=== PATIENT | female | born 1945 | race Caucasian/White ===

== ENCOUNTER 2020-10-28 17:15 | Inpatient (IN) | payer MEDICARE, OTHER ==
[~2020-10-28 17:15] MED LIST: Iopamidol-370 76% 500 ML 1 ML ONE
--- NOTE | 2020-10-28 18:44 | RAD ---
Exam: Chest one view HISTORY:COVID exposure Comparison: None FINDINGS: Cardiac silhouette: Normal Aorta: Unremarkable Pulmonary vessels: Normal Costophrenic angles: Clear LUNGS: No masses or consolidation. Chronic lung parenchymal changes. Pneumothorax: None Osseous abnormalities: None IMPRESSION: No acute cardiopulmonary process.
[2020-10-28] MEDS ORDERED: Albuterol 200 PUFF (6.7GM INHALER) ONE (18:45)
[2020-10-28] MEDS ORDERED: Dexamethasone 10 MG/ML VIAL ONE (18:45)
[2020-10-28] MEDS ORDERED: Aspirin Chewable 81 MG TAB ONE (18:45)
[2020-10-28 18:49] LABS: #Basophils 0.1 thou/uL (0.0-0.2); #Eosinphils 0.2 thou/uL (0.0-0.7); #Lymphocytes 1.5 thou/uL (1.20-3.40); #Monocytes 0.8 thou/uL (0.11-0.59); #Neutrophils 5.3 thou/uL (1.40-6.50); %Basophils 0.8 % (0.0-1.0); %Eosinophils 2.4 % (0.0-10.0); %Lymphocytes 19.6 % (21.0-51.0); %Neutrophils 67.1 % (42.0-75.0); Hemoglobin 14.5 g/dL (12.0-16.0); Mean Corpuscular HGB CONC 33.8 g/dL (32.0-36.0); Mean Corpuscular Hemoglobin 29.2 pg (27.0-31.0); Mean Corpuscular Volume 86.4 fL (78.0-98.0); RBC Distribution Width 11.6 % (11.5-14.5); Red Blood Cell (RBC) Count 4.96 mill/uL (4.20-5.40); White Blood Cell (WBC) Count 7.8 thou/uL (4.8-10.8)
[2020-10-28 18:58] LABS: MDiff Complete? YES; Mean Platelet Volume 9.6 fL (7.4-10.4); Platelet Count 44 thou/uL (130-400); Platelet Morphology Comment Appears Decreased; Polychromasia SLIGHT = 2-3 cells (100X) (0-2/hpf)
[2020-10-28 18:59] LABS: ALT (SGPT) 30 U/L (8-55); AST (SGOT) 29 U/L (5-34); Albumin 3.9 g/dL (3.4-4.8); Alkaline Phosphatase 104 U/L (40-110); Anion Gap 14 mmol/L (10-20); BUN (Urea Nitrogen) 20 mg/dL (9.8-20.1); Bilirubin, Total 0.9 mg/dL (0.2-1.2); Calc. Creatinine Clearance 0 mL/min (70-130); Calcium 9.3 mg/dL (7.8-10.44); Carbon Dioxide 28 mmol/L (23-31); Chloride 106 mmol/L (98-107); Globulin 3.1 g/dL (2.4-3.5); Glucose 100 mg/dL (83-110); Potassium 4.3 mmol/L (3.5-5.1); Sodium 144 mmol/L (136-145)
[2020-10-28 19:52] LABS: SARS-CoV-2 NAA Rapid Test DETECTED (NotDetected)
[2020-10-28] MEDS ORDERED: diphenhydrAMINE 50 MG/ML VIAL ONE (19:59)
[2020-10-28] MEDS ORDERED: Famotidine/PF 20 mg/2ml Vial ONE (20:00)
[2020-10-28] MEDS ORDERED: methylPREDNISolone Sod Succ/PF 125 MG/2 ML VIAL ONE (20:01)
--- NOTE | 2020-10-28 21:48 | CT ---
Exam: CT angiogram of the chest HISTORY: Dyspnea, x3 weeks. Shortness of breath. Chest tightness. History of previous DVT. COMPARISON: None TECHNIQUE: CT angiogram of the chest is performed in the axial plane. Three-dimensional reformatted i mages are submitted for interpretation FINDINGS: Mediastinum: No mass, lymphadenopathy or hematoma. HEART: Normal size. No significant pericardial fluid. Aorta: No aneurysm or dissection Upper solid abdominal viscera: Hypoattenuation liver due to hepatic steatosis Trachea and central bronchi: Patent Pleural spaces: No effusion Lung parenchyma: Minimal parenchymal groundglass opacities in the middle lobe and right upper lobe. I ll-defined opacities in the middle lobe measures 0.4 cm. Granuloma in the lingula. 0.3 cm ill-defined opacity in the left lower lobe. Pneumothorax: None Osseous structures: No lytic or blastic lesions Pulmonary arteries:There are intraluminal filling defects involving the distal right pulmonary artery , lobar and segmental branches of the right upper lobe and segmental branch right lower lobe. There are also filling defects in the distal left main pulmonary artery extending into the proximal lobar l eft lower lobe artery and segmental branches of the left lower lobe pulmonary artery. These filling defects are incomplete and have a somewhat linear appearance. Findings may represent previous pulmona ry artery emboli which did not completely resolve. However, an acute component cannot be excluded. There does not appear to be right heart strain. IMPRESSION: 1. Linear filling defects which are intraluminal involving the right and left pulmonary arterial syst em as described above. Imaging appearance favors a previous incompletely resolved pulmonary artery emboli with residual partial thrombosis. A component of an acute process is less favored but cannot b e entirely excluded. 2. No evidence of right heart failure.
[2020-10-28] MEDS ORDERED: Enoxaparin Sodium 100 MG/ML SYRINGE ONE (23:43)
[2020-10-28 23:44] LABS: Troponin I 0.014 ng/mL (< 0.028)
[2020-10-29 00:33] LABS: Mean Corpuscular HGB CONC 34.6 g/dL (32.0-36.0); Mean Corpuscular Hemoglobin 29.8 pg (27.0-31.0); Mean Corpuscular Volume 86.1 fL (78.0-98.0); Mean Platelet Volume 10.3 fL (7.4-10.4); Platelet Count 48 thou/uL (130-400); RBC Distribution Width 11.8 % (11.5-14.5); Red Blood Cell (RBC) Count 5.04 mill/uL (4.20-5.40); White Blood Cell (WBC) Count 8.6 thou/uL (4.8-10.8)
[2020-10-29] MEDS ORDERED: Ondansetron ODT 4 MG TAB SL PRN (01:15)
[2020-10-29] MEDS ORDERED: Ondansetron PF 4 MG/2 ML Vial IVP PRN ×2 (01:15→06:19)
[2020-10-29 02:03] VITALS: BMI 36.6
[2020-10-29 02:47] LABS: Troponin I 0.012 ng/mL (< 0.028)
[2020-10-29] MEDS ORDERED: Promethazine HCl 12.5 MG in Sodium Chloride 0.9% 50 ML IVPB PRN (06:19)
[2020-10-29] MEDS ORDERED: cloNIDine 0.1 MG TAB PO PRN (06:19)
[2020-10-29] MEDS ORDERED: Acetaminophen 325 MG TAB PO PRN (06:19)
[2020-10-29] MEDS ORDERED: Guaifenesin DM 100-10/5 ML UDCUP PO PRN (06:19)
[2020-10-29] MEDS ORDERED: HYDROcodone/Acetaminophen 5/325 mg Tablet PO PRN (06:19)
[2020-10-29] MEDS ORDERED: Labetalol HCl 100 MG/20 ML VIAL SLOW IVP PRN (06:19)
[2020-10-29] MEDS ORDERED: hydrALAZINE 20 MG/ML VIAL SLOW IVP PRN (06:19)
--- NOTE | 2020-10-29 06:24 | PDOC.HHP ---
Hospitalist HPI Shortness of breath History of Present Illness: Patient is a 74 year old male with PMH colon cancer, DVT (remote), HTN, HLD who presents to ED for shortness of breath. She reports symptoms started 3 weeks ago and have become worse in last week. Had a fever initially but this has resolved. She reports body aches and chest pain. Spouse was admitted here for COVID this month as well. She has history of colon cancer in remission, saw doctor in [facility] some time ago and had a DVT while cancer was active, treated with 6 months lovenox. In ED, not on O2, however CTA performed of chest due to history revealing multiple diffuse small PEs and scattered ground glass opacities consistent with COVID. COVID test positive. Patient admitted for covid, PE. she prefers not be on lovenox and wants to try eliquis or xarelto fpc. Allergies/Adverse Reactions: Allergy/AdvReac Type Severity Reaction Status Date / Time Iodinated Contrast Media Allergy Unknown Rash Verified 10/29/20 02:10 Penicillins Allergy Verified 10/29/20 02:10 tramadol Allergy Verified 10/29/20 02:10 Home Medications: Medication Instructions Recorded Confirmed Type Valsartan/Hydrochlorothiazide 1 each PO DAILY 10/29/20 10/29/20 History [Valsartan-Hctz 80-12.5 mg Tab] Past History: PMHx: PNA as a kid "spots on my lungs from that", colon CA 2011, DVT right leg, HTN, HDL, hypothyroidism. PSHx: left rotator cuff sx, bilat knee replacement, Surgical history of appendectomy, Surgical history of section, Surgical history of hy sterectomy. FHx: reviewed, no relevant family history. Social: Patient denies alcohol use, Patient denies drug use, Patient has no smoking history. Hospitalist HPI HILDA Constitutional: reports: fever, chills, sweats, weakness Eyes: denies: pain, vision change, conjunctivae inflammation, eyelid inflammation, redness, other ENT: denies: ear pain, ear discharge, nose pain, nose discharge, nose congestion, mouth pain, mouth swelling, throat pain, throat swelling, other Respiratory: reports: shortness of breath, pleuritic pain. denies: cough, dry, hemoptysis, SOB with excertion, sputum, wheezing, other Cardiovascular: denies: chest pain, palpitations, orthopnea, paroxysmal noc. dyspnea, edema, light headedness, other Gastrointestinal: denies: nausea, vomiting, abdominal pain, diarrhea, constipation, melena, hematochezia, other Genitourinary: denies: dysuria, frequency, incontinence, hematuria, retention, other Musculoskeletal: denies: neck pain, shoulder pain, arm pain, back pain, hand pain, leg pain, foot pain, other Skin: denies: rash, lesions, conrad, bruising, other Neurological: denies: weakness, numbness, incoordination, change in speech, confusion, seizures, other All other systems reviewed; all pertinent +/- noted in HPI/Subj Hospitalist Exam Vitals: Vital Signs (12 hours) Temp Pulse Resp BP BP Pulse Ox 10/29/20 06:07 76 10/29/20 06:00 20 10/29/20 05:00 18 98 10/29/20 04:00 20 97 10/29/20 03:30 98 F 97 17 122/64 93 L 10/29/20 03:00 20 10/29/20 01:00 97.9 F 104 H 22 H 141/65 H 141/65 H 95 Weight Admit Weight 207 lb Weight 207 lb General Appearance: NAD, awake alert Eye: PERRL, anicteric sclera ENT: normocephalic atraumatic, no oropharyngeal lesions, moist mucosa Neck: supple, symmetric, no JVD, no thyromegaly, no lymphadenopathy, no carotid bruit Heart: RRR, no murmur, no gallops, no rubs, normal peripheral pulses Respiratory: CTAB, no wheezes, no rales, no ronchi, normal chest expansion, no tachypnea, normal percussion Gastrointestinal: soft, non-tender, non-distended, normal bowel sounds, no palpable masses, no hepatomegaly, no splenomegaly, no bruit Extremities: no cyanosis, no clubbing, no edema Skin: normal turgor, no lesions, no rashes Neurological: cranial nerve grossly intact, normal sensation to touch, no weakness, no focal deficits, no new deficit Musculoskeletal: normal tone, normal strength, no muscle wasting Psychiatric: normal affect, normal behavior, A&O x 3 Hospitalist Results Result Diagrams: 10/29/20 00:16 10/28/20 18:26 Lab results: Laboratory Last Values WBC 8.6 thou/uL (4.8-10.8) 10/29/20 00:16 RBC 5.04 mill/uL (4.20-5.40) 10/29/20 00:16 Hgb 15.0 g/dL (12.0-16.0) 10/29/20 00:16 Hct 43.4 % (36.0-47.0) 10/29/20 00:16 MCV 86.1 fL (78.0-98.0) 10/29/20 00:16 MCH 29.8 pg (27.0-31.0) 10/29/20 00:16 MCHC 34.6 g/dL (32.0-36.0) 10/29/20 00:16 RDW 11.8 % (11.5-14.5) 10/29/20 00:16 Plt Count 48 thou/uL (130-400) L 10/29/20 00:16 MPV 10.3 fL (7.4-10.4) 10/29/20 00:16 Neutrophils % 67.1 % (42.0-75.0) 10/28/20 18:26 Neutrophils % (Manual) Not Reportable 10/28/20 18:26 Lymphocytes % 19.6 % (21.0-51.0) L 10/28/20 18:26 Monocytes % 10.0 % (0.0-10.0) 10/28/20 18:26 Eosinophils % 2.4 % (0.0-10.0) 10/28/20 18:26 Basophils % 0.8 % (0.0-1.0) 10/28/20 18:26 Neutrophils # 5.3 thou/uL (1.40-6.50) 10/28/20 18:26 Lymphocytes # 1.5 thou/uL (1.20-3.40) 10/28/20 18:26 Monocytes # 0.8 thou/uL (0.11-0.59) H 10/28/20 18:26 Eosinophils # 0.2 thou/uL (0.0-0.7) 10/28/20 18: Basophils # 0.1 thou/uL (0.0-0.2) 10/28/20 18:26 Plt Morphology Comment Appears Decreased L 10/28/20 18: Polychromasia SLIGHT = 2-3 cells (100X) (0-2/hpf) 10/28/20 18:26 Sodium 144 mmol/L (136-145) 10/28/20 18: Potassium 4.3 mmol/L (3.5-5.1) 10/28/20 18: Chloride 106 mmol/L (98-107) 10/28/20 18: Carbon Dioxide 28 mmol/L (23-31) 10/28/20 18: Anion Gap 14 mmol/L (10-20) 10/28/20 18: BUN 20 mg/dL (9.8-20.1) 10/28/20 18: Creatinine 1.03 mg/dL (0.6-1.1) 10/28/20 18: Estimated GFR (MDRD) 52 10/28/20 18: Glucose 100 mg/dL (83-110) 10/28/20 18: Lactic Acid 1.2 mmol/L (0.5-2.2) 10/28/20 18:33 Calcium 9.3 mg/dL (7.8-10.44) 10/28/20 18: Total Bilirubin 0.9 mg/dL (0.2-1.2) 10/28/20 18: AST 29 U/L (5-34) 10/28/20 18: ALT 30 U/L (8-55) 10/28/20 18: Alkaline Phosphatase 104 U/L (40-110) 10/28/20 18: Troponin I 0.012 ng/mL (< 0.028) 10/29/20 02:14 B-Natriuretic Peptide 10.5 pg/mL (0-100) 10/28/20 18: Serum Total Protein 7.0 g/dL (5.8-8.1) 10/28/20 18: Albumin 3.9 g/dL (3.4-4.8) 10/28/20 18: Globulin 3.1 g/dL (2.4-3.5) 10/28/20 18: Albumin/Globulin Ratio 1.3 g/dL (1.2-2.2) 10/28/20 18:26 Influenza A RNA INAAT Not Detected (NotDetected) 10/28/20 18:57 Influenza B RNA INAAT Not Detected (NotDetected) 10/28/20 18:57 SARS-CoV-2 Rap RNA(RT-PCR) DETECTED (NotDetected) A* 10/28/20 18:57 XR Chest 1 View Portable Observe DT: SatOct 28, 2020 18:12, CXRP Exam: Chest one view IMPRESSION: No acute cardiopulmonary process. CTA Angio Chest W WO Con Observe DT: SatOct 28, 2020 18:19, CTATHX Exam: CT angiogram of the chest IMPRESSION: 1. Linear filling defects which are intraluminal involving the right and left pulmonary arterial syst em as described above. Imaging appearance favors a previous incompletely resolved pulmonary artery emboli with residual partial thrombosis. A component of an acute process is less favored but cannot b e entirely excluded. 2. No evidence of right heart failure. Additional comment: EKG 86 bpm sinus, no acute ST elevations Hospitalist H&P A/P Plan: Patient is a 74 year old male with PMH colon cancer, DVT (remote), HTN, HLD who presents to ED for shortness of breath. # COVID pneumonia # pulmonary embolism - with history of colon cancer in remission dyspnea x 3 weeks, fever, body aches and chest pain, history of colon cancer in remission, saw doctor in [facility] some time ago and had a DVT while cancer was active, treated with 6 months lovenox. In ED, not on O2, however CTA performed of chest due to history revealing multiple diffuse small PEs and scattered ground glass opacities consistent with COVID. COVID test positive. Patient admitted for covid, PE - admit to telemetry - she prefers not be on lovenox and wants to try eliquis or xarelto fpc - start lovenox for now - decadron - covid precautions - monitor off abx for now DVT/GI ppx
[2020-10-29] MEDS ORDERED: Electrolyte Replacement Protocol 1 EACH FS SCH (06:30)
[2020-10-29] MEDS: Dexamethasone 4 mg/ml Vial SLOW IVP SCH (06:42)
[2020-10-29] MEDS: Hydrochlorothiazide 25 MG TAB PO SCH (07:49)
[2020-10-29] MEDS: Valsartan 80 MG TAB PO SCH (07:50)
[2020-10-29] MEDS ORDERED: Cepastat Lozenges 1 LOZ PO PRN (08:20)
[2020-10-29] MEDS ORDERED: Calcium Carbonate 500 MG ChewTAB PO PRN (08:20)
[2020-10-29] MEDS ORDERED: Bisacodyl 5 MG TAB PO PRN (08:20)
[2020-10-29] MEDS ORDERED: Loratadine 10 MG TAB PO PRN (08:20)
[2020-10-29] MEDS ORDERED: Senokot S 8.6-50 MG TAB PO PRN (08:20)
[2020-10-29] MEDS ORDERED: Benzonatate 100 MG CAP PO PRN (08:20)
[2020-10-29] MEDS ORDERED: GUAIFENESIN SF SOLN 200 MG/10 ML UDCUP PO PRN (08:20)
[2020-10-29] MEDS ORDERED: Loperamide HCl 2 MG CAP PO PRN (08:20)
[2020-10-29] MEDS ORDERED: Sodium Chloride 0.65% Nasal 44 ML BOT EA NARE PRN (08:20)
[2020-10-29] MEDS ORDERED: Famotidine 20 MG TAB PO SCH (09:00)
[2020-10-29] MEDS: Enoxaparin Sodium 100 MG/ML SYRINGE SC SCH ×2 (10:11→21:37)
[2020-10-29] MEDS: Ascorbic Acid 500 mg Chewable Tablet PO SCH (10:14)
[2020-10-29] MEDS: Cholecalciferol 1,000 UNITS (25 MCG) TAB PO SCH (10:15)
[2020-10-29] MEDS: Zinc Sulfate 220 MG CAP PO SCH (10:15)
[2020-10-29] MEDS: Vitamin E 400 UNITS CAP PO SCH (10:15)
--- NOTE | 2020-10-29 11:01 | PDOC.HOSPP ---
- Subjective Encounter Date: 10/29/20 Encounter Time: 07:50 Subjective: Patient seen and examined bedside today, no overnight event, patient feels subjective chest tightness when she takes deep breath, she denies any cough or shortness of breath, she denies any fever or chills, she is on room air this morning, she denies any lower extremity pain or swelling, patient reports that she was developed bruise when she was getting Lovenox injection with her previous DVT episode. - Objective Vital Signs & Weight: Vital Signs (12 hours) Temp Pulse Resp BP BP Pulse Ox 10/29/20 07:30 98.2 F 91 20 116/65 95 10/29/20 06:07 76 10/29/20 06:00 20 10/29/20 05:00 18 98 10/29/20 04:00 20 97 10/29/20 03:30 98 F 97 17 122/64 93 L 10/29/20 03:00 20 10/29/20 01:00 97.9 F 104 H 22 H 141/65 H 141/65 H 95 Weight Admit Weight 207 lb Weight 207 lb Result Diagrams: 10/29/20 00:16 10/28/20 18:26 Radiology Reviewed by me: Yes (CT angiography noted) EKG Reviewed by me: Yes Hospitalist ROS - Review of Systems Constitutional: denies: fever, chills, sweats, weakness, malaise, other Respiratory: denies: cough, dry, shortness of breath, hemoptysis, SOB with excertion, pleuritic pain, sputum, wheezing, other Cardiovascular: reports: chest pain. denies: palpitations, orthopnea, par oxysmal noc. dyspnea, edema, light headedness, other Gastrointestinal: denies: nausea, vomiting, abdominal pain, diarrhea, constipation, melena, hematochezia, other Genitourinary: denies: dysuria, frequency, incontinence, hematuria, retention, other Musculoskeletal: denies: neck pain, shoulder pain, arm pain, back pain, hand pain, leg pain, foot pain, other - Medication Medications: Active Medications Generic Name Dose Route Start Last Admin Trade Name Freq PRN Reason Stop Dose Admin Ascorbic Acid 1,000 mg 10/29/20 09:00 10/29/20 10:14 Ascorbic Acid 500 Mg Chewable Tablet PO 1,000 mg DAILY JERRY Administration Cholecalciferol 1,000 units 10/29/20 09:00 10/29/20 10:15 Cholecalciferol 1,000 Units (25 Mcg) Tab PO 1,000 units DAILY JERRY Administration Dexamethasone 6 mg 10/29/20 06:30 10/29/20 06:42 Dexamethasone 4 Mg/Ml Vial SLOW IVP 6 mg Q24H JERRY Administration Enoxaparin Sodium 90 mg 10/29/20 09:00 10/29/20 10:11 Enoxaparin Sodium 100 Mg/Ml Syringe SC 90 mg 0900,2100 JERRY Administration Hydrochlorothiazide 12.5 mg 10/29/20 09:00 10/29/20 07:49 Hydrochlorothiazide 25 Mg Tab PO 12.5 mg DAILY JERRY Administration Pantoprazole Sodium 40 mg 10/29/20 09:00 10/29/20 10:15 Pantoprazole 40 Mg Tab PO 40 mg DAILY JERRY Administration Sodium Chloride 10 ml 10/29/20 09:00 10/29/20 10:16 Flush - Normal Saline 10 Ml Syringe IVF 10 ml Q12HR JERRY Administration Valsartan 80 mg 10/29/20 09:00 10/29/20 07:50 Valsartan 80 Mg Tab PO 80 mg DAILY JERRY Administration Vitamin E 400 units 10/29/20 09:00 10/29/20 10:15 Vitamin E 400 Units Cap PO 400 units DAILY JERRY Administration Zinc Sulfate 220 mg 10/29/20 09:00 10/29/20 10:15 Zinc Sulfate 220 Mg Cap PO 220 mg DAILY JERRY Administration Hospitalist Exam Vitals: Vital Signs (12 hours) Temp Pulse Resp BP BP Pulse Ox 10/29/20 07:30 98.2 F 91 20 116/65 95 10/29/20 06:07 76 10/29/20 06:00 20 10/29/20 05:00 18 98 10/29/20 04:00 20 97 10/29/20 03:30 98 F 97 17 122/64 93 L 10/29/20 03:00 20 10/29/20 01:00 97.9 F 104 H 22 H 141/65 H 141/65 H 95 Weight Admit Weight 207 lb Weight 207 lb General Appearance: NAD, awake alert Eye: PERRL, anicteric sclera ENT: normocephalic atraumatic, no oropharyngeal lesions Neck: supple, symmetric, no JVD, no thyromegaly Heart: RRR, no murmur, no gallops, no rubs Respiratory: no wheezes, no rales, no ronchi Gastrointestinal: soft, non-tender, non-distended, normal bowel sounds Extremities: no clubbing, no edema Skin: normal turgor, no lesions Neurological: no focal deficits Musculoskeletal: normal tone, normal strength Psychiatric: normal affect, normal behavior Hosp A/P (1) COVID-19 Code(s): U07.1 - COVID-19 Status: Acute Plan: Patient is on room air, will start vitamin supplementation, patient is on dexamethasone (2) Pulmonary embolism Code(s): I26.99 - OTHER PULMONARY EMBOLISM WITHOUT ACUTE COR PULMONALE Status: Acute Qualifiers: Pulmonary embolism type: multiple subsegmental (without acute cor pulmonale) Qualified Code(s): I26.94 - Multiple subsegmental pulmonary emboli without acute cor pulmonale (3) Thrombocytopenia Code(s): D69.6 - THROMBOCYTOPENIA, UNSPECIFIED Status: Acute (4) Obesity (BMI 30-39.9) Code(s): E66.9 - OBESITY, UNSPECIFIED Status: Chronic (5) History of colon cancer Code(s): Z85.038 - PERSONAL HISTORY OF MALIGNANT NEOPLASM OF LARGE INTESTINE Status: Chronic (6) History of DVT (deep vein thrombosis) Code(s): Z86.718 - PERSONAL HISTORY OF OTHER VENOUS THROMBOSIS AND EMBOLISM Status: Chronic (7) Hypertension Code(s): I10 - ESSENTIAL (PRIMARY) HYPERTENSION Status: Chronic Qualifiers: Hypertension type: essential hypertension Qualified Code(s): I10 - Essential (primary) hypertension - Plan old records reviewed/req, DVT proph w/lovenox Patient has thrombocytopenia, platelet count is slightly better than yesterday, probably related with COVID-19 but underlying other etiology cannot be entirely excluded, will consult hematology especially patient will need anticoagulation for her acute/lab acute to pulmonary embolism based on CT angiography finding, patient prefers Eliquis or Xarelto upon discharge but before we put on oral anticoagulant therapy we will get opinion from hematology regarding safety of the medication, and the patient is also given education about risk and benefit of all anticoagulant therapy and outpatient monitoring and follow-up emphasized, tomorrow we will repeat labs and inflammatory markers. We have added vitamin supplementation for her COVID-19, she is also on dexamethasone.
--- NOTE | 2020-10-29 18:00 | PDOC.BPN ---
- Brief Progress Note Encounter Date: 10/29/20 Encounter Time: 17:59 based on [facility] medical direction, Sobeida Guardado, patient meets inpatient criteria, based on that recommendation changed to inpt status
--- NOTE | 2020-10-29 18:29 | CON ---
DATE OF CONSULTATION: REASON FOR CONSULTATION: PE and thrombocytopenia. HISTORY OF PRESENT ILLNESS: A 74-year-old female with past medical history of colon cancer, DVT, hypertension, hyperlipidemia, and obesity, presenting to the ER with shortness of breath. She states these started within the last three weeks, and over the last few days, began worsening. She had a fever, but this had resolved, also reporting body aches, chest pain, and chest tightness. She was admitted with COVID, and her spouse was admitted for COVID this month as well and is currently in rehab. She was found to have a subacute or chronic pulmonary embolism, though scan could not rule out an acute PE. She had a DVT in 2011 while she was being treated for stage IIIB colon cancer and took Lovenox for six months at that time. She received six months of chemotherapy and has been in remission ever since. She has no history of PE that she is aware of. Her platelets on admission were 44 yesterday and 48 early this morning at midnight. She did not report any abnormal blood counts in the past. She does know she was told she had fatty liver five years ago, but was never told why or anything to do about it. Since admission, she has been started on Lovenox and is complaining of pain from the injections and does not want to take it anymore. She states her shortness of breath and chest tightness have improved since admission. She has no new medications and does not drink alcohol. Her PCP is Dr. Everton Butler in [place], [place]. REVIEW OF SYSTEMS: Ten-point review of systems negative except as per HPI. PAST MEDICAL HISTORY: Colon cancer, DVT, hypertension, high cholesterol, and hypothyroidism. PAST SURGICAL HISTORY: Colon resection, rotator cuff surgery, bilateral knee replacements, appendectomy, , and hysterectomy. FAMILY HISTORY: Not relevant. SOCIAL HISTORY: No alcohol or smoking. CURRENT MEDICATIONS: Reviewed. HOME MEDICATIONS: Valsartan and hydrochlorothiazide. ALLERGIES: 1. IODINATED CONTRAST. 2. PENICILLINS. 3. TRAMADOL. PHYSICAL EXAMINATION: VITAL SIGNS: Temperature 98.3, pulse 100, respirations 21, saturating 93% to 95% on room air, and blood pressure 121/62. Physical examination not done as the patient is COVID positive, and interview was done over the phone to limit exposure. LABORATORY DATA: White blood cells 8.6, hemoglobin 15.0, and platelets 44 on admission, up to 48 six hours later. Sodium 144, potassium 4.3, BUN 20, creatinine 1.03, glucose 100, lactic acid 1.2, bilirubin 0.9, AST 29, ALT 30, alkaline phosphatase 104. BNP 10.5. Troponin peaked at 0.014. COVID PCR was positive, and influenza was negative. IMAGING DATA: CT angio of the chest showed right and left pulmonary arterial embolism favoring a previous incompletely resolved pulmonary embolism with residual partial thrombosis, though component of acute process cannot be entirely excluded and no right heart failure. ASSESSMENT AND PLAN: A 74-year-old female with COVID and thrombocytopenia and pulmonary embolism. She had a deep venous thrombosis during colon cancer and has subacute or acute pulmonary embolism or both and has been started on Lovenox. Her platelets are 48 with no prior history as per the patient of low platelet counts. I expect her low platelets are secondary to COVID, which could also explain her pulmonary embolism. Although this is her 2nd blood clot, the 1st one was provoked by active cancer and this one likely due to COVID, so she likely does not require lifelong anticoagulation. As long as her platelets remain above 40, she is safe for anticoagulation, and as long as no procedures are planned, can safely be switched to either Xarelto or Eliquis at this time and Lovenox can be stopped. Given her history of fatty liver and fatty liver seen on CT, I do recommend abdominal ultrasound to evaluate the liver and the spleen for organomegaly and check viral hepatitis panel as she has never been screened for hepatitis C. She should follow up with her PCP in [place] after discharged to complete 3 to 6 months of anticoagulation and trend platelet count level if it has not returned to normal prior to discharge. Job ID: [id number] [facility]
--- NOTE | 2020-10-29 21:36 | ULT ---
EXAM: US Abdominal CLINICAL HISTORY: Evaluate spleen and liver. COMPARISON: None. FINDINGS: Pancreas: The head and proximal pancreas have a normal echotexture IVC: Obscured by bowel gas Aorta: Visualized aorta has a normal caliber. Liver:Heterogeneous hepatic parenchymal texture likely due to hepatic steatosis or hepatocellular dis ease. Limited evaluation for hepatic masses and intrahepatic biliary dilatation. Right hepatic lobe measures 19.2 cm Gallbladder: Limited evaluation. No sonographic evidence of cholelithiasis, gallbladder wall thickeni ng or pericholecystic fluid. Mayorga's sign:Not commented upon CBD: 0.45 cm common bile duct diameter Portal vein: Not assessed Right kidney: Normal cortical echotexture. No hydronephrosis Right kidney measuring 10.8 x 3.7 x 4. 6 cm in length. Left kidney: Normal cortical echotexture. No hydronephrosis. Left kidney measuring 11.1 x 4.7 x 4.5 cm in length Spleen: Mildly enlarged measuring 14 cm in maximum dimension IMPRESSION: Hepatosplenomegaly. Heterogeneous echotexture of the liver presumed to be due to hepatic steatosis. C T angiogram from 10/28/2020 does demonstrate hepatic steatosis
[2020-10-30 05:11] LABS: #Monocytes 1.2 thou/uL (0.11-0.59); #Neutrophils 17.1 thou/uL (1.40-6.50); %Eosinophils 0.1 % (0.0-10.0); %Lymphocytes 5.3 % (21.0-51.0); %Neutrophils 88.6 % (42.0-75.0); Hemoglobin 13.7 g/dL (12.0-16.0); Mean Corpuscular HGB CONC 32.4 g/dL (32.0-36.0); Mean Corpuscular Hemoglobin 27.9 pg (27.0-31.0); Mean Corpuscular Volume 86.2 fL (78.0-98.0); Mean Platelet Volume 10.4 fL (7.4-10.4); Platelet Count 65 thou/uL (130-400); RBC Distribution Width 11.9 % (11.5-14.5); Red Blood Cell (RBC) Count 4.89 mill/uL (4.20-5.40); White Blood Cell (WBC) Count 19.4 thou/uL (4.8-10.8)
[2020-10-30 05:17] LABS: Anion Gap 15 mmol/L (10-20); BUN (Urea Nitrogen) 35 mg/dL (9.8-20.1); Calc. Creatinine Clearance 60 mL/min (70-130); Calcium 8.9 mg/dL (7.8-10.44); Carbon Dioxide 24 mmol/L (23-31); Chloride 105 mmol/L (98-107); Glucose 127 mg/dL (83-110); Magnesium 2.3 mg/dL (1.6-2.6); Potassium 3.9 mmol/L (3.5-5.1); Sodium 140 mmol/L (136-145)
[2020-10-30 05:29] LABS: Ferritin 269.53 ng/mL (10-291)
[2020-10-30 05:30] LABS: Hep C IgG Ab Non-Reactive (NonReactive); Hep C Index 0.15 S/CO (0-0.79)
[2020-10-30] MEDS: Dexamethasone 4 mg/ml Vial SLOW IVP SCH (05:56)
[2020-10-30] MEDS: Hydrochlorothiazide 25 MG TAB PO SCH (09:13)
[2020-10-30] MEDS: Ascorbic Acid 500 mg Chewable Tablet PO SCH (09:14)
[2020-10-30] MEDS: Vitamin E 400 UNITS CAP PO SCH (09:14)
[2020-10-30] MEDS: Dexamethasone 4 MG TAB PO SCH (09:14)
[2020-10-30] MEDS: Valsartan 80 MG TAB PO SCH (09:15)
[2020-10-30] MEDS: Cholecalciferol 1,000 UNITS (25 MCG) TAB PO SCH (09:15)
[2020-10-30] MEDS: Zinc Sulfate 220 MG CAP PO SCH (09:15)
--- NOTE | 2020-10-30 10:01 | PDOC.HOSPP ---
- Subjective Encounter Date: 10/30/20 Encounter Time: 08:00 Subjective: Patient seen and examined. No new complaints. No overnight events - Objective Vital Signs & Weight: Vital Signs (12 hours) Temp Pulse Resp BP Pulse Ox 10/30/20 07:59 98.4 F 75 16 174/73 H 96 10/30/20 03:30 97.7 F 75 16 133/70 95 10/29/20 23:05 98.0 F 80 20 136/67 94 L Weight Admit Weight 207 lb Weight 207 lb Result Diagrams: 10/30/20 04:22 10/30/20 04:22 Radiology Reviewed by me: Yes (Ultrasound showing fatty liver) EKG Reviewed by me: Yes Hospitalist ROS - Review of Systems ENT: denies: ear pain, ear discharge, nose pain, nose discharge, nose congestion, mouth pain, mouth swelling, throat pain, throat swelling, other Respiratory: denies: cough, dry, shortness of breath, hemoptysis, SOB with excertion, pleuritic pain, sputum, wheezing, other Cardiovascular: denies: chest pain, palpitations, orthopnea, paroxysmal noc. dyspnea, edema, light headedness, other Gastrointestinal: denies: nausea, vomiting, abdominal pain, diarrhea, constipation, melena, hematochezia, other Genitourinary: denies: dysuria, frequency, incontinence, hematuria, retention, other Musculoskeletal: denies: neck pain, shoulder pain, arm pain, back pain, hand pain, leg pain, foot pain, other - Medication Medications: Active Medications Generic Name Dose Route Start Last Admin Trade Name Freq PRN Reason Stop Dose Admin Ascorbic Acid 1,000 mg 10/29/20 09:00 10/30/20 09:14 Ascorbic Acid 500 Mg Chewable Tablet PO 1,000 mg DAILY JERRY Administration Cholecalciferol 1,000 units 10/29/20 09:00 10/30/20 09:15 Cholecalciferol 1,000 Units (25 Mcg) Tab PO 1,000 units DAILY JERRY Administration Dexamethasone 6 mg 10/30/20 08:00 10/30/20 09:14 Dexamethasone 4 Mg Tab PO 6 mg QA- JERRY Administration Hydrochlorothiazide 12.5 mg 10/29/20 09:00 10/30/20 09:13 Hydrochlorothiazide 25 Mg Tab PO 12.5 mg DAILY JERRY Administration Pantoprazole Sodium 40 mg 10/29/20 09:00 10/30/20 09:15 Pantoprazole 40 Mg Tab PO 40 mg DAILY JERRY Administration Sodium Chloride 10 ml 10/29/20 09:00 10/30/20 03:13 Flush - Normal Saline 10 Ml Syringe IVF 10 ml Q12HR JERRY Administration Valsartan 80 mg 10/29/20 09:00 10/30/20 09:15 Valsartan 80 Mg Tab PO 80 mg DAILY JERRY Administration Vitamin E 400 units 10/29/20 09:00 10/30/20 09:14 Vitamin E 400 Units Cap PO 400 units DAILY JERRY Administration Zinc Sulfate 220 mg 10/29/20 09:00 10/30/20 09:15 Zinc Sulfate 220 Mg Cap PO 220 mg DAILY JERRY Administration Hospitalist Exam Vitals: Vital Signs (12 hours) Temp Pulse Resp BP Pulse Ox 10/30/20 07:59 98.4 F 75 16 174/73 H 96 10/30/20 03:30 97.7 F 75 16 133/70 95 10/29/20 23:05 98.0 F 80 20 136/67 94 L Weight Admit Weight 207 lb Weight 207 lb General Appearance: NAD, awake alert Eye: PERRL, anicteric sclera ENT: normocephalic atraumatic, no oropharyngeal lesions Neck: supple, symmetric, no JVD, no thyromegaly Heart: RRR, no murmur, no gallops, no rubs Respiratory: no wheezes, no rales, no ronchi Gastrointestinal: soft, non-tender, non-distended, normal bowel sounds Extremities: no cyanosis, no clubbing, no edema Skin: normal turgor, no lesions Neurological: no focal deficits Musculoskeletal: normal tone, normal strength Psychiatric: normal affect, normal behavior, A&O x 3 Hosp A/P (1) COVID-19 Code(s): U07.1 - COVID-19 Status: Acute (2) Pulmonary embolism Code(s): I26.99 - OTHER PULMONARY EMBOLISM WITHOUT ACUTE COR PULMONALE Status: Acute Qualifiers: Pulmonary embolism type: multiple subsegmental (without acute cor pulmonale) Qualified Code(s): I26.94 - Multiple subsegmental pulmonary emboli without acute cor pulmonale (3) Thrombocytopenia Code(s): D69.6 - THROMBOCYTOPENIA, UNSPECIFIED Status: Acute (4) Obesity (BMI 30-39.9) Code(s): E66.9 - OBESITY, UNSPECIFIED Status: Chronic (5) History of colon cancer Code(s): Z85.038 - PERSONAL HISTORY OF MALIGNANT NEOPLASM OF LARGE INTESTINE Status: Chronic (6) History of DVT (deep vein thrombosis) Code(s): Z86.718 - PERSONAL HISTORY OF OTHER VENOUS THROMBOSIS AND EMBOLISM Status: Chronic (7) Hypertension Code(s): I10 - ESSENTIAL (PRIMARY) HYPERTENSION Status: Chronic Qualifiers: Hypertension type: essential hypertension Qualified Code(s): I10 - Esse ntial (primary) hypertension (8) Hepatic steatosis Code(s): K76.0 - FATTY (CHANGE OF) LIVER, NOT ELSEWHERE CLASSIFIED Status: Chronic - Plan old records reviewed/req Oncology recommendation appreciated, platelet count is improving, her thrombocytopenia most likely related with COVID-19, Today her WBC count elevated which is related with the steroid, Today we will discontinue Lovenox We will start Eliquis 10 mg twice daily We will monitor while in hospital Medication reviewed and continue for symptomatic and supportive care
[2020-10-30] MEDS: Apixaban 5 MG TAB PO SCH ×2 (10:40→20:15)
--- NOTE | 2020-10-30 11:59 | PDOC.MOPN ---
Interval History: Patient not seen and examined due to COVID+. Labs and imaging reviewed. - Vital Signs Vital Signs: Vital Signs (12 hours) Temp Pulse Resp BP Pulse Ox 10/30/20 11:45 98.5 F 81 16 166/74 H 94 L 10/30/20 07:59 98.4 F 75 16 174/73 H 96 10/30/20 03:30 97.7 F 75 16 133/70 95 Weight Admit Weight 207 lb Weight 207 lb - Labs Result Diagrams: 10/30/20 04:22 10/30/20 04:22 Lab results: Laboratory Results - last 24 hr 10/30/20 04:22: D-Dimer 2.60 H 10/30/20 04:22: Ferritin 269.53, Hepatitis C Antibody Non-Reactive 10/30/20 04:22: C-Reactive Protein 0.85 H 10/30/20 04:22: WBC 19.4 H, RBC 4.89, Hgb 13.7, Hct 42.2, MCV 86.2, MCH 27.9, MCHC 32.4, RDW 11.9, Plt Count 65 L, MPV 10.4, Neutrophils % 88.6 H, Neutrophils % (Manual) Not Reportable, Lymphocytes % 5.3 L, Monocytes % 6.0, Eosinophils % 0.1, Basophils % 0.0, Neutrophils # 17.1 H, Lymphocytes # 1.0 L, Monocytes # 1.2 H, Eosinophils # 0.0, Basophils # 0.0 10/30/20 04:22: Sodium 140, Potassium 3.9, Chloride 105, Carbon Dioxide 24, Anion Gap 15, BUN 35 H, Creatinine 1.22 H, Estimated GFR (MDRD) 43, Glucose 127 H, Calcium 8.9, Magnesium 2.3 A/P - Problem (1) COVID-19 Current Visit: Yes Code(s): U07.1 - COVID-19 Status: Acute (2) Pulmonary embolism Current Visit: Yes Code(s): I26.99 - OTHER PULMONARY EMBOLISM WITHOUT ACUTE COR PULMONALE Status: Acute Qualifiers: Pulmonary embolism type: multiple subsegmental (without acute cor pulmonale) Qualified Code(s): I26.94 - Multiple subsegmental pulmonary emboli without acute cor pulmonale (3) Thrombocytopenia Current Visit: Yes Code(s): D69.6 - THROMBOCYTOPENIA, UNSPECIFIED Status: Acute (4) Hepatic steatosis Current Visit: Yes Code(s): K76.0 - FATTY (CHANGE OF) LIVER, NOT ELSEWHERE CLASSIFIED Status: Chronic - Plan Plan: Thrombocytopenia likely 2/2 COVID+ although she does have hepatosplenomegaly with fatty liver. Labs do not show signs of cirrhosis. We do not have any outpatient records of prior labs but would not be surprised if she has mild thrombocytopenia at baseline. She needs to f/u with her PCP and possibly GI as outpatient for evaluation. She needs to work on weight loss and control of HTN and HLD, in order to reverse her fatty liver and prevent cirrhosis, if she is not in the early stages already based on US. Cont Jackie
[2020-10-30] MEDS: Gabapentin 300 MG CAP PO SCH ×2 (15:44→20:16)
[2020-10-31] MEDS ORDERED: Apixaban 5 MG TAB ONE (11:45)
[2020-10-31] MEDS ORDERED: Valsartan 80 MG TAB ONE (11:45)
[2020-10-31] MEDS ORDERED: Dexamethasone 4 MG TAB ONE (11:45)
[2020-10-31] MEDS ORDERED: Zinc Sulfate 220 MG CAP ONE (11:48)
[2020-10-31] MEDS ORDERED: Ascorbic Acid 500 mg Chewable Tablet ONE (11:48)
[2020-10-31] MEDS: Ascorbic Acid 500 mg Chewable Tablet PO SCH (11:48)
[2020-10-31] MEDS: Zinc Sulfate 220 MG CAP PO SCH (11:49)
[2020-10-31] MEDS: Dexamethasone 4 MG TAB PO SCH (11:49)
[2020-10-31] MEDS ORDERED: Vitamin E 400 UNITS CAP ONE (11:49)
[2020-10-31] MEDS: Apixaban 5 MG TAB PO SCH ×2 (11:50→21:00)
[2020-10-31] MEDS: Vitamin E 400 UNITS CAP PO SCH (11:50)
[2020-10-31] MEDS: Valsartan 80 MG TAB PO SCH (11:50)
[2020-10-31] MEDS: Cholecalciferol 1,000 UNITS (25 MCG) TAB PO SCH (11:55)
[2020-10-31] MEDS ORDERED: Cholecalciferol 1,000 UNITS (25 MCG) TAB ONE (11:56)
[2020-10-31] MEDS ORDERED: Gabapentin 300 MG CAP ONE (12:06)
[2020-10-31] MEDS: Gabapentin 300 MG CAP PO SCH ×3 (12:07→20:35)
--- NOTE | 2020-10-31 12:42 | PDOC.HOSPP ---
- Subjective Encounter Date: 10/31/20 Encounter Time: 07:30 Subjective: Patient seen and examined. No new complaints. No overnight events - Objective Vital Signs & Weight: Vital Signs (12 hours) Temp Pulse Resp BP Pulse Ox 10/31/20 08:00 97.4 F L 62 18 162/72 H 95 Weight Admit Weight 207 lb Weight 207 lb Result Diagrams: 10/30/20 04:22 10/30/20 04:22 EKG Reviewed by me: Yes Hospitalist ROS - Review of Systems ENT: denies: ear pain, ear discharge, nose pain, nose discharge, nose congestion, mouth pain, mouth swelling, throat pain, throat swelling, other Respiratory: denies: cough, dry, shortness of breath, hemoptysis, SOB with excertion, pleuritic pain, sputum, wheezing, other Cardiovascular: denies: chest pain, palpitations, orthopnea, paroxysmal noc. dyspnea, edema, light headedness, other Gastrointestinal: denies: nausea, vomiting, abdominal pain, diarrhea, constipation, melena, hematochezia, other Genitourinary: denies: dysuria, frequency, incontinence, hematuria, retention, other Musculoskeletal: denies: neck pain, shoulder pain, arm pain, back pain, hand pa in, leg pain, foot pain, other - Medication Medications: Active Medications Generic Name Dose Route Start Last Admin Trade Name Mansoorq PRN Reason Stop Dose Admin Apixaban 10 mg 10/30/20 09:00 10/31/20 11:50 Apixaban 5 Mg Tab PO 10 mg BID JERRY Administration Ascorbic Acid 1,000 mg 10/29/20 09:00 10/31/20 11:48 Ascorbic Acid 500 Mg Chewable Tablet PO 1,000 mg DAILY JERRY Administration Cholecalciferol 1,000 units 10/29/20 09:00 10/31/20 11:55 Cholecalciferol 1,000 Units (25 Mcg) Tab PO 1,000 units DAILY JERRY Administration Dexamethasone 6 mg 10/30/20 08:00 10/31/20 11:49 Dexamethasone 4 Mg Tab PO 6 mg QAM-WM JERRY Administration Gabapentin 600 mg 10/30/20 15:00 10/31/20 12:07 Gabapentin 300 Mg Cap PO 600 mg TID JERRY Administration Hydrochlorothiazide 12.5 mg 10/29/20 09:00 10/30/20 09:13 Hydrochlorothiazide 25 Mg Tab PO 12.5 mg DAILY JERRY Administration Pantoprazole Sodium 40 mg 10/29/20 09:00 10/31/20 11:56 Pantoprazole 40 Mg Tab PO 40 mg DAILY JERRY Administration Sodium Chloride 10 ml 10/29/20 09:00 10/31/20 11:56 Flush - Normal Saline 10 Ml Syringe IVF 10 ml Q12HR JERRY Administration Valsartan 80 mg 10/29/20 09:00 10/31/20 11:50 Valsartan 80 Mg Tab PO 80 mg DAILY JERRY Administration Vitamin E 400 units 10/29/20 09:00 10/31/20 11:50 Vitamin E 400 Units Cap PO 400 units DAILY JERRY Administration Zinc Sulfate 220 mg 10/29/20 09:00 10/31/20 11:49 Zinc Sulfate 220 Mg Cap PO 220 mg DAILY JERRY Administration Hospitalist Exam Vitals: Vital Signs (12 hours) Temp Pulse Resp BP Pulse Ox 10/31/20 08:00 97.4 F L 62 18 162/72 H 95 Weight Admit Weight 207 lb Weight 207 lb General Appearance: NAD, awake alert Eye: PERRL, anicteric sclera ENT: normocephalic atraumatic, no oropharyngeal lesions Neck: supple, symmetric, no JVD, no thyromegaly Heart: RRR, no murmur, no gallops, no rubs Respiratory: no wheezes, no rales, no ronchi Gastrointestinal: soft, non-tender, non-distended, normal bowel sounds Extremities: no cyanosis, no clubbing Skin: normal turgor, no lesions Neurological: no focal deficits Musculoskeletal: normal tone, normal strength Psychiatric: normal affect, normal behavior Hosp A/P (1) COVID-19 Code(s): U07.1 - COVID-19 Status: Acute (2) Pulmonary embolism Code(s): I26.99 - OTHER PULMONARY EMBOLISM WITHOUT ACUTE COR PULMONALE Status: Acute Qualifiers: Pulmonary embolism type: multiple subsegmental (without acute cor pulmonale) Qualified Code(s): I26.94 - Multiple subsegmental pulmonary emboli without acute cor pulmonale (3) Thrombocytopenia Code(s): D69.6 - THROMBOCYTOPENIA, UNSPECIFIED Status: Acute (4) Obesity (BMI 30-39.9) Code(s): E66.9 - OBESITY, UNSPECIFIED Status: Chronic (5) History of colon cancer Code(s): Z85.038 - PERSONAL HISTORY OF MALIGNANT NEOPLASM OF LARGE INTESTINE Status: Chronic (6) History of DVT (deep vein thrombosis) Code(s): Z86.718 - PERSONAL HISTORY OF OTHER VENOUS THROMBOSIS AND EMBOLISM Status: Chronic (7) Hypertension Code(s): I10 - ESSENTIAL (PRIMARY) HYPERTENSION Status: Chronic Qualifiers: Hypertension type: essential hypertension Qualified Code(s): I10 - Essential (primary) hypertension (8) Hepatic steatosis Code(s): K76.0 - FATTY (CHANGE OF) LIVER, NOT ELSEWHERE CLASSIFIED Status: Chronic - Plan old records reviewed/req continue Eliquis 10 mg twice daily We will monitor while in hospital Medication reviewed and continue for symptomatic and supportive care
[2020-10-31] MEDS: Hydrochlorothiazide 25 MG TAB PO SCH (15:39)
[2020-10-31 16:28] LABS: Anion Gap 15 mmol/L (10-20); BUN (Urea Nitrogen) 33 mg/dL (9.8-20.1); Calc. Creatinine Clearance 67 mL/min (70-130); Calcium 8.7 mg/dL (7.8-10.44); Carbon Dioxide 26 mmol/L (23-31); Chloride 106 mmol/L (98-107); Glucose 117 mg/dL (83-110); Magnesium 2.4 mg/dL (1.6-2.6); Potassium 4.5 mmol/L (3.5-5.1); Sodium 142 mmol/L (136-145)
[2020-10-31 17:13] LABS: #Lymphocytes 1.2 thou/uL (1.20-3.40); #Neutrophils 13.9 thou/uL (1.40-6.50); %Basophils 0.2 % (0.0-1.0); %Lymphocytes 7.6 % (21.0-51.0); %Monocytes 5.9 % (0.0-10.0); %Neutrophils 86.3 % (42.0-75.0); Hemoglobin 13.5 g/dL (12.0-16.0); Mean Corpuscular HGB CONC 34.7 g/dL (32.0-36.0); Mean Corpuscular Hemoglobin 30.2 pg (27.0-31.0); Mean Platelet Volume 11.7 fL (7.4-10.4); Platelet Count 66 thou/uL (130-400); RBC Distribution Width 11.5 % (11.5-14.5); Red Blood Cell (RBC) Count 4.45 mill/uL (4.20-5.40); White Blood Cell (WBC) Count 16.2 thou/uL (4.8-10.8)
[2020-10-31] MEDS ORDERED: Melatonin 3 MG TAB PO PRN (22:06)
[2020-10-31] MEDS: Zolpidem Tartrate 5 MG TAB PO PRN (22:33)
[2020-10-31] MEDS: Levothyroxine Sodium 88 MCG TAB PO SCH (23:04)
[2020-11-01 04:49] LABS: #Eosinphils 0.1 thou/uL (0.0-0.7); #Lymphocytes 1.1 thou/uL (1.20-3.40); #Neutrophils 9.2 thou/uL (1.40-6.50); %Basophils 0.1 % (0.0-1.0); %Eosinophils 0.7 % (0.0-10.0); %Lymphocytes 9.6 % (21.0-51.0); %Monocytes 8.8 % (0.0-10.0); %Neutrophils 80.7 % (42.0-75.0); Hemoglobin 13.4 g/dL (12.0-16.0); Mean Corpuscular HGB CONC 33.5 g/dL (32.0-36.0); Mean Corpuscular Hemoglobin 28.8 pg (27.0-31.0); Mean Platelet Volume 11.5 fL (7.4-10.4); Platelet Count 81 thou/uL (130-400); RBC Distribution Width 11.6 % (11.5-14.5); Red Blood Cell (RBC) Count 4.64 mill/uL (4.20-5.40); White Blood Cell (WBC) Count 11.4 thou/uL (4.8-10.8)
[2020-11-01 04:58] LABS: ALT (SGPT) 34 U/L (8-55); AST (SGOT) 28 U/L (5-34); Albumin 3.4 g/dL (3.4-4.8); Alkaline Phosphatase 83 U/L (40-110); Anion Gap 13 mmol/L (10-20); BUN (Urea Nitrogen) 30 mg/dL (9.8-20.1); Bilirubin, Total 0.6 mg/dL (0.2-1.2); Calc. Creatinine Clearance 70 mL/min (70-130); Calcium 8.3 mg/dL (7.8-10.44); Carbon Dioxide 27 mmol/L (23-31); Chloride 103 mmol/L (98-107); Globulin 2.7 g/dL (2.4-3.5); Glucose 124 mg/dL (83-110); Magnesium 2.3 mg/dL (1.6-2.6); Protein, Total 6.1 g/dL (5.8-8.1); Sodium 139 mmol/L (136-145)
[2020-11-01] MEDS: Levothyroxine Sodium 88 MCG TAB PO SCH (06:48)
[2020-11-01] MEDS: Ascorbic Acid 500 mg Chewable Tablet PO SCH (08:34)
[2020-11-01] MEDS: Hydrochlorothiazide 25 MG TAB PO SCH (08:34)
[2020-11-01] MEDS: Cholecalciferol 1,000 UNITS (25 MCG) TAB PO SCH (08:35)
[2020-11-01] MEDS: Gabapentin 300 MG CAP PO SCH ×3 (08:35→21:39)
[2020-11-01] MEDS: Valsartan 80 MG TAB PO SCH (08:35)
[2020-11-01] MEDS: Apixaban 5 MG TAB PO SCH ×2 (08:36→21:40)
[2020-11-01] MEDS: Vitamin E 400 UNITS CAP PO SCH (08:36)
[2020-11-01] MEDS: Zinc Sulfate 220 MG CAP PO SCH (08:37)
[2020-11-01] MEDS: Dexamethasone 4 MG TAB PO SCH (08:37)
--- NOTE | 2020-11-01 11:26 | PDOC.HOSPP ---
- Subjective Encounter Date: 11/01/20 Encounter Time: 09:30 Subjective: Patient feels that she needs to go to rehab for more strength, no overnight event, no chest pain, no shortness of breath - Objective Vital Signs & Weight: Vital Signs (12 hours) Temp Pulse Resp BP Pulse Ox 11/01/20 04:00 98.3 F 55 L 19 133/52 L 97 11/01/20 00:00 96.0 F L 73 18 132/58 L 96 Weight Admit Weight 207 lb Weight 207 lb 0.013 oz Result Diagrams: 11/01/20 03:57 11/01/20 03:57 EKG Reviewed by me: Yes Hospitalist ROS - Review of Systems Constitutional: reports: weakness. denies: fever, chills, sweats, malaise, other Respiratory: denies: cough, dry, shortness of breath, hemoptysis, SOB with excertion, pleuritic pain, sputum, wheezing, other Cardiovascular: denies: chest pain, palpitations, orthopnea, paroxysmal noc. dyspnea, edema, light headedness, other Gastrointestinal: denies: nausea, vomiting, abdominal pain, diarrhea, consti pation, melena, hematochezia, other Genitourinary: denies: dysuria, frequency, incontinence, hematuria, retention, other Musculoskeletal: denies: neck pain, shoulder pain, arm pain, back pain, hand pain, leg pain, foot pain, other - Medication Medications: Active Medications Generic Name Dose Route Start Last Admin Trade Name Freq PRN Reason Stop Dose Admin Apixaban 10 mg 10/30/20 09:00 11/01/20 08:36 Apixaban 5 Mg Tab PO 10 mg BID JERRY Administration Ascorbic Acid 1,000 mg 10/29/20 09:00 11/01/20 08:34 Ascorbic Acid 500 Mg Chewable Tablet PO 1,000 mg DAILY JERRY Administration Cholecalciferol 1,000 units 10/29/20 09:00 11/01/20 08:35 Cholecalciferol 1,000 Units (25 Mcg) Tab PO 1,000 units DAILY JERRY Administration Dexamethasone 6 mg 10/30/20 08:00 11/01/20 08:37 Dexamethasone 4 Mg Tab PO 6 mg QAM-WM JERRY Administration Gabapentin 600 mg 10/30/20 15:00 11/01/20 08:35 Gabapentin 300 Mg Cap PO 600 mg TID JERRY Administration Hydrochlorothiazide 12.5 mg 10/29/20 09:00 11/01/20 08:34 Hydrochlorothiazide 25 Mg Tab PO 12.5 mg DAILY JERRY Administration Levothyroxine Sodium 88 mcg 10/31/20 06:00 11/01/20 06:48 Levothyroxine Sodium 88 Mcg Tab PO 88 mcg 0600 JERRY Administration Pantoprazole Sodium 40 mg 10/29/20 09:00 11/01/20 08:34 Pantoprazole 40 Mg Tab PO 40 mg DAILY JERRY Administration Sodium Chloride 10 ml 10/29/20 09:00 10/31/20 23:04 Flush - Normal Saline 10 Ml Syringe IVF Not Given Q12HR JERRY Valsartan 80 mg 10/29/20 09:00 11/01/20 08:35 Valsartan 80 Mg Tab PO 80 mg DAILY JERRY Administration Vitamin E 400 units 10/29/20 09:00 11/01/20 08:36 Vitamin E 400 Units Cap PO 400 units DAILY JERRY Administration Zinc Sulfate 220 mg 10/29/20 09:00 11/01/20 08:37 Zinc Sulfate 220 Mg Cap PO 220 mg DAILY JERRY Administration Zolpidem Tartrate 5 mg 10/29/20 08:20 10/31/20 22:33 Zolpidem Tartrate 5 Mg Tab PO 5 mg HSPRN PRN Administration Insomnia Hospitalist Exam Vitals: Vital Signs (12 hours) Temp Pulse Resp BP Pulse Ox 11/01/20 04:00 98.3 F 55 L 19 133/52 L 97 11/01/20 00:00 96.0 F L 73 18 132/58 L 96 Weight Admit Weight 207 lb Weight 207 lb 0.013 oz General Appearance: NAD, awake alert Eye: PERRL, anicteric sclera ENT: normocephalic atraumatic, no oropharyngeal lesions Neck: supple, symmetric, no JVD Heart: RRR, no murmur, no gallops, no rubs Respiratory: no wheezes, no rales, no ronchi Gastrointestinal: soft, non-tender, non-distended, normal bowel sounds Extremities: no clubbing, no edema Skin: normal turgor, no lesions Neurological: no focal deficits Musculoskeletal: normal tone, normal strength Psychiatric: normal affect, normal behavior, A&O x 3 Hosp A/P (1) COVID-19 Code(s): U07.1 - COVID-19 Status: Acute (2) Pulmonary embolism Code(s): I26.99 - OTHER PULMONARY EMBOLISM WITHOUT ACUTE COR PULMONALE Status: Acute Qualifiers: Pulmonary embolism type: multiple subsegmental (without acute cor pulmonale) Qualified Code(s): I26.94 - Multiple subsegmental pulmonary emboli without acute cor pulmonale (3) Thrombocytopenia Code(s): D69.6 - THROMBOCYTOPENIA, UNSPECIFIED Status: Acute (4) Obesity (BMI 30-39.9) Code(s): E66.9 - OBESITY, UNSPECIFIED Status: Chronic (5) History of colon cancer Code(s): Z85.038 - PERSONAL HISTORY OF MALIGNANT NEOPLASM OF LARGE INTESTINE Status: Chronic (6) History of DVT (deep vein thrombosis) Code(s): Z86.718 - PERSONAL HISTORY OF OTHER VENOUS THROMBOSIS AND EMBOLISM Status: Chronic (7) Hypertension Code(s): I10 - ESSENTIAL (PRIMARY) HYPERTENSION Status: Chronic Qualifiers: Hypertension type: essential hypertension Qualified Code(s): I10 - Essential (primary) hypertension (8) Hepatic steatosis Code(s): K76.0 - FATTY (CHANGE OF) LIVER, NOT ELSEWHERE CLASSIFIED Status: Chronic - Plan old records reviewed/req, PT/OT, social service technician continue Eliquis 10 mg twice daily till November 05, 2020 and after that change to 5 mg twice daily Patient wants rehab evaluation so we will consult ENT manager commercial sales consultation for rehab evaluation We will monitor while in hospital Medication reviewed and continue for symptomatic and supportive care
[2020-11-01] MEDS: Zolpidem Tartrate 5 MG TAB PO PRN (21:40)
[2020-11-02] MEDS: Levothyroxine Sodium 88 MCG TAB PO SCH (07:37)
[2020-11-02] MEDS: Zinc Sulfate 220 MG CAP PO SCH (08:25)
[2020-11-02] MEDS: Valsartan 80 MG TAB PO SCH (08:25)
[2020-11-02] MEDS: Hydrochlorothiazide 25 MG TAB PO SCH (08:26)
[2020-11-02] MEDS: Ascorbic Acid 500 mg Chewable Tablet PO SCH (08:26)
[2020-11-02] MEDS: Dexamethasone 4 MG TAB PO SCH (08:28)
[2020-11-02] MEDS: Apixaban 5 MG TAB PO SCH ×2 (08:29→19:34)
[2020-11-02] MEDS: Vitamin E 400 UNITS CAP PO SCH (08:29)
[2020-11-02] MEDS: Gabapentin 300 MG CAP PO SCH ×3 (08:30→19:33)
[2020-11-02] MEDS: Cholecalciferol 1,000 UNITS (25 MCG) TAB PO SCH (08:31)
[2020-11-02] MEDS ORDERED: Fluconazole 100 MG TAB PO SCH (12:00)
[2020-11-02] MEDS: Zolpidem Tartrate 5 MG TAB PO PRN (19:34)
--- NOTE | 2020-11-02 21:18 | PDOC.HOSPP ---
- Subjective Encounter Date: 11/02/20 Subjective: Reports feeling well denies any complaints except for vaginal itching - Objective Vital Signs & Weight: Vital Signs (12 hours) Temp Pulse Resp BP BP BP Pulse Ox 11/02/20 19:30 98.1 F 64 22 H 164/74 H 95 11/02/20 17:41 98.2 F 67 16 166/76 H 93 L 11/02/20 13:00 70 16 132/88 95 11/02/20 11:21 161/70 H 144/72 H Weight Admit Weight 207 lb Weight 207 lb 0.013 oz I&O: 11/01/20 11/02/20 11/03/20 06:59 06:59 06:59 Intake Total 710 Balance 710 Result Diagrams: 11/01/20 03:57 11/01/20 03:57 Hospitalist ROS - Medication Medications: Active Medications Generic Name Dose Route Start Last Admin Trade Name Freq PRN Reason Stop Dose Admin Apixaban 10 mg 10/30/20 09:00 11/02/20 19:34 Apixaban 5 Mg Tab PO 10 mg BID JERRY Administration Ascorbic Acid 1,000 mg 10/29/20 09:00 11/02/20 08:26 Ascorbic Acid 500 Mg Chewable Tablet PO 1,000 mg DAILY JERRY Administration Cholecalciferol 1,000 units 10/29/20 09:00 11/02/20 08:31 Cholecalciferol 1,000 Units (25 Mcg) Tab PO 1,000 units DAILY JERRY Administration Dexamethasone 6 mg 10/30/20 08:00 11/02/20 08:28 Dexamethasone 4 Mg Tab PO 6 mg QAM- JERRY Administration Gabapentin 600 mg 10/30/20 15:00 11/02/20 19:33 Gabapentin 300 Mg Cap PO 600 mg TID JERRY Administration Hydrochlorothiazide 12.5 mg 10/29/20 09:00 11/02/20 08:26 Hydrochlorothiazide 25 Mg Tab PO 12.5 mg DAILY JERRY Administration Levothyroxine Sodium 88 mcg 10/31/20 06:00 11/02/20 07:37 Levothyroxine Sodium 88 Mcg Tab PO 88 mcg 0600 JERRY Administration Pantoprazole Sodium 40 mg 10/29/20 09:00 11/02/20 08:29 Pantoprazole 40 Mg Tab PO 40 mg DAILY JERRY Administration Sodium Chloride 10 ml 10/29/20 09:00 11/02/20 08:25 Flush - Normal Saline 10 Ml Syringe IVF 10 ml Q12HR JERRY Administration Valsartan 80 mg 10/29/20 09:00 11/02/20 08:25 Valsartan 80 Mg Tab PO 80 mg DAILY JERRY Administration Vitamin E 400 units 10/29/20 09:00 11/02/20 08:29 Vitamin E 400 Units Cap PO 400 units DAILY JERRY Administration Zinc Sulfate 220 mg 10/29/20 09:00 11/02/20 08:25 Zinc Sulfate 220 Mg Cap PO 220 mg DAILY JERRY Administration Zolpidem Tartrate 5 mg 10/29/20 08:20 11/02/20 19:34 Zolpidem Tartrate 5 Mg Tab PO 5 mg HSPRN PRN Administration Insomnia Hospitalist Exam Vitals: Vital Signs (12 hours) Temp Pulse Resp BP BP BP Pulse Ox 11/02/20 19:30 98.1 F 64 22 H 164/74 H 95 11/02/20 17:41 98.2 F 67 16 166/76 H 93 L 11/02/20 13:00 70 16 132/88 95 11/02/20 11:21 161/70 H 144/72 H Weight Admit Weight 207 lb Weight 207 lb 0.013 oz General Appearance: NAD Eye: PERRL, anicteric sclera ENT: normocephalic atraumatic, no oropharyngeal lesions Neck: supple, symmetric, no JVD, no thyromegaly Heart: RRR, no murmur, no gallops, no rubs Respiratory: CTAB, no wheezes, no rales Gastrointestinal: soft, non-tender Extremities: no cyanosis Hosp A/P (1) COVID-19 Code(s): U07.1 - COVID-19 Status: Acute (2) Pulmonary embolism Code(s): I26.99 - OTHER PULMONARY EMBOLISM WITHOUT ACUTE COR PULMONALE Status: Acute Qualifiers: Pulmonary embolism type: multiple subsegmental (without acute cor pulmonale) Qualified Code(s): I26.94 - Multiple subsegmental pulmonary emboli without acute cor pulmonale (3) Thrombocytopenia Code(s): D69.6 - THROMBOCYTOPENIA, UNSPECIFIED Status: Acute - Plan Plan for today 11/02 She continues to work with physical therapy awaiting placement. We will give her 1 dose of fluconazole for vaginal yeast infection.
[2020-11-03] MEDS: Levothyroxine Sodium 88 MCG TAB PO SCH (04:40)
[2020-11-03] MEDS: Zinc Sulfate 220 MG CAP PO SCH (10:04)
[2020-11-03] MEDS: Valsartan 80 MG TAB PO SCH (10:04)
[2020-11-03] MEDS: Apixaban 5 MG TAB PO SCH ×2 (10:04→20:16)
[2020-11-03] MEDS: Ascorbic Acid 500 mg Chewable Tablet PO SCH (10:05)
[2020-11-03] MEDS: Gabapentin 300 MG CAP PO SCH ×3 (10:05→20:16)
[2020-11-03] MEDS: Hydrochlorothiazide 25 MG TAB PO SCH (10:06)
[2020-11-03] MEDS: Dexamethasone 4 MG TAB PO SCH (10:06)
[2020-11-03] MEDS: Vitamin E 400 UNITS CAP PO SCH (10:07)
[2020-11-03] MEDS: Cholecalciferol 1,000 UNITS (25 MCG) TAB PO SCH (10:07)
--- NOTE | 2020-11-03 17:44 | PDOC.HOSPP ---
- Subjective Encounter Date: 11/03/20 Subjective: Well-appearing in no acute distress. - Objective Vital Signs & Weight: Vital Signs (12 hours) Temp Pulse Resp BP Pulse Ox 11/03/20 16:00 98.4 F 72 16 126/58 L 96 11/03/20 12:00 98.4 F 68 134/70 94 L 11/03/20 08:00 97.8 F 62 16 145/64 H 95 Weight Admit Weight 207 lb Weight 207 lb 0.048 oz I&O: 11/02/20 11/03/20 11/04/20 06:59 06:59 06:59 Intake Total 710 Balance 710 Result Diagrams: 11/01/20 03:57 11/01/20 03:57 Hospitalist ROS - Medication Medications: Active Medications Generic Name Dose Route Start Last Admin Trade Name Freq PRN Reason Stop Dose Admin Apixaban 10 mg 10/30/20 09:00 11/03/20 10:04 Apixaban 5 Mg Tab PO 10 mg BID JERRY Administration Ascorbic Acid 1,000 mg 10/29/20 09:00 11/03/20 10:05 Ascorbic Acid 500 Mg Chewable Tablet PO 1,000 mg DAILY JERRY Administration Cholecalciferol 1,000 units 10/29/20 09:00 11/03/20 10:07 Cholecalciferol 1,000 Units (25 Mcg) Tab PO 1,000 units DAILY JERRY Administration Dexamethasone 6 mg 10/30/20 08:00 11/03/20 10:06 Dexamethasone 4 Mg Tab PO 6 mg QAM-WM JERRY Administration Gabapentin 600 mg 10/30/20 15:00 11/03/20 15:01 Gabapentin 300 Mg Cap PO 600 mg TID JERRY Administration Hydrochlorothiazide 12.5 mg 10/29/20 09:00 11/03/20 10:06 Hydrochlorothiazide 25 Mg Tab PO 12.5 mg DAILY JERRY Administration Levothyroxine Sodium 88 mcg 10/31/20 06:00 11/03/20 04:40 Levothyroxine Sodium 88 Mcg Tab PO 88 mcg 0600 EJRRY Administration Pantoprazole Sodium 40 mg 10/29/20 09:00 11/03/20 10:07 Pantoprazole 40 Mg Tab PO 40 mg DAILY JERRY Administration Sodium Chloride 10 ml 10/29/20 09:00 11/03/20 10:07 Flush - Normal Saline 10 Ml Syringe IVF 10 ml Q12HR JERRY Administration Valsartan 80 mg 10/29/20 09:00 11/03/20 10:04 Valsartan 80 Mg Tab PO 80 mg DAILY JERRY Administration Vitamin E 400 units 10/29/20 09:00 11/03/20 10:07 Vitamin E 400 Units Cap PO 400 units DAILY JERRY Administration Zinc Sulfate 220 mg 10/29/20 09:00 11/03/20 10:04 Zinc Sulfate 220 Mg Cap PO 220 mg DAILY JERRY Administration Zolpidem Tartrate 5 mg 10/29/20 08:20 11/02/20 19:34 Zolpidem Tartrate 5 Mg Tab PO 5 mg HSPRN PRN Administration Insomnia Hospitalist Exam Vitals: Vital Signs (12 hours) Temp Pulse Resp BP Pulse Ox 11/03/20 16:00 98.4 F 72 16 126/58 L 96 11/03/20 12:00 98.4 F 68 134/70 94 L 11/03/20 08:00 97.8 F 62 16 145/64 H 95 Weight Admit Weight 207 lb Weight 207 lb 0.048 oz General Appearance: NAD Eye: PERRL, anicteric sclera ENT: normocephalic atraumatic, no oropharyngeal lesions Neck: supple, symmetric, no JVD Heart: RRR, no murmur, no gallops Respiratory: CTAB, no wheezes, no rales Gastrointestinal: soft, non-tender, non-distended Hosp A/P (1) COVID-19 Code(s): U07.1 - COVID-19 Status: Acute (2) Pulmonary embolism Code(s): I26.99 - OTHER PULMONARY EMBOLISM WITHOUT ACUTE COR PULMONALE Status: Acute Qualifiers: Pulmonary embolism type: multiple subsegmental (without acute cor pulmonale) Qualified Code(s): I26.94 - Multiple subsegmental pulmonary emboli without acute cor pulmonale (3) Thrombocytopenia Code(s): D69.6 - THROMBOCYTOPENIA, UNSPECIFIED Status: Acute - Plan Plan for today 11/02 She continues to work with physical therapy awaiting placement. We will give her 1 dose of fluconazole for vaginal yeast infection. Plan for today 11/03 Patient continues to work with physical therapy and doing well, we are trying to arrange for her to go with home health. I will check lipid profile in a.m. considering that she has fatty liver disease.
[2020-11-03] MEDS: Zolpidem Tartrate 5 MG TAB PO PRN (20:16)
[2020-11-04 05:07] LABS: Cardiac Risk 4.7 (Less than 4.5)
[2020-11-04] MEDS: Levothyroxine Sodium 88 MCG TAB PO SCH (05:57)
[2020-11-04] MEDS: Ascorbic Acid 500 mg Chewable Tablet PO SCH (08:44)
[2020-11-04] MEDS: Gabapentin 300 MG CAP PO SCH ×2 (08:45→13:57)
[2020-11-04] MEDS: Vitamin E 400 UNITS CAP PO SCH (08:45)
[2020-11-04] MEDS: Valsartan 80 MG TAB PO SCH (08:46)
[2020-11-04] MEDS: Zinc Sulfate 220 MG CAP PO SCH (08:46)
[2020-11-04] MEDS: Cholecalciferol 1,000 UNITS (25 MCG) TAB PO SCH (08:46)
[2020-11-04] MEDS: Hydrochlorothiazide 25 MG TAB PO SCH (08:46)
[2020-11-04] MEDS: Apixaban 5 MG TAB PO SCH (08:46)
[2020-11-04] MEDS: Dexamethasone 4 MG TAB PO SCH (08:47)
--- NOTE | 2020-11-04 14:56 | PDOC.DS.DS ---
Provider Date of Admission: 10/29/20 17:57 Date of Discharge: 11/04/20 Admitting Provider: Tello Mccray MD Consultations: Other (Heme-onc) Primary Care Physician: Brittany Robledo MD Course Hospital Course: This is a 74-year-old female patient who presented to the emergency room with shortness of breath that started 3 weeks ago and became worse, her spouse was admitted to the hospital with COVID-19 earlier this month, a CT of the chest showed multiple diffuse small PE and had a groundglass opacities consistent with Covid, patient does have past medical history of DVT while she had colon Cancer. Patient was admitted to telemetry, she was started on Lovenox, Decadron. At some point she was diagnosed with thrombocytopenia, she was seen by hematology oncology, it was thought that her thrombocytopenia is secondary to COVID-19, she was okayed for anticoagulation, she was started on Eliquis. CAT scan incidentally showed fatty liver, and abdominal sonogram showed hepatosplenomegaly but with no cirrhosis, it was suggested that she follows gastroenterology as an outpatient , she was started on vitamin C and vitamin E, I did check her lipid profile and her cholesterol was on the high side I will discharge her on a low-dose statin. She was also advised to lose weight. Resuscitation Status: 10/29/20 06:19 Resuscitation Status Routine Resuscitation Status: FULL: Full Resuscitation Lab Results: 11/01/20 03:57 11/01/20 03:57 Abnormal Lab Results - Last 48 hrs 11/04/20 04:12: Cholesterol 226 H Vitals: Vital Signs (12 hours) Temp Pulse Resp BP Pulse Ox 11/04/20 08:00 98.2 F 66 20 155/68 H 95 11/04/20 03:22 98.4 F 67 14 143/68 H 94 L Weight Admit Weight 207 lb Weight 207 lb 0.048 oz Physical Exam: The patient was seen and examined on the day of discharge. General Appearance: NAD, awake alert Eye: PERRL, anicteric sclera ENT: normocephalic atraumatic, no oropharyngeal lesions Neck: supple, symmetric, no JVD, no thyromegaly Respiratory: CTAB, no wheezes, no rales, no ronchi Cardiovascular: RRR, no murmur, no gallops, no rubs Gastrointestinal: soft, non-tender, non-distended Extremities: no cyanosis, no clubbing Skin: normal turgor Neurological: cranial nerve grossly intact, normal sensation to touch Problem (1) COVID-19 Code(s): U07.1 - COVID-19 Status: Acute (2) Pulmonary embolism Code(s): I26.99 - OTHER PULMONARY EMBOLISM WITHOUT ACUTE COR PULMONALE Status: Acute Qualifiers: Pulmonary embolism type: multiple subsegmental (without acute cor pulmonale) Qualified Code(s): I26.94 - Multiple subsegmental pulmonary emboli without acute cor pulmonale (3) Thrombocytopenia Code(s): D69.6 - THROMBOCYTOPENIA, UNSPECIFIED Status: Acute Time Spent in discharge related activities (mins): 45 Plan Prescriptions: Dexamethasone [Decadron] 6 mg PO DAILY 4 Days #4 tab Apixaban [Eliquis] 5 mg PO BID #60 tablet Apixaban [Eliquis] 10 mg PO BID 2 Days #3 tablet Hydrochlorothiazide 12.5 mg PO DAILY 30 Days #15 tab Pantoprazole [Protonix] 40 mg PO DAILY #30 tab Ascorbic Acid [Vitamin C] 1,000 mg PO DAILY #30 tab Cholecalciferol [Vitamin D3] 1,000 units PO DAILY #14 tab Vitami E (Dl,Tocopheryl Acet) [Vitamin E] 400 units PO DAILY #14 cap Zinc Sulfate 220 mg PO DAILY #14 cap Simvastatin [Zocor] 20 mg PO HS 30 Days #30 tab Home Medications: Medication Instructions Recorded Confirmed Type Valsartan/Hydrochlorothiazide 1 each PO DAILY 10/29/20 10/29/20 History [Valsartan-Hctz 80-12.5 mg Tab] Gabapentin 600 mg PO TID 10/30/20 10/30/20 History Levothyroxine Sodium 88 mcg PO DAILY 10/30/20 10/30/20 History [Levothyroxine] Apixaban [Eliquis] 5 mg PO BID #60 tablet 11/01/20 Rx Ascorbic Acid [Vitamin C] 1,000 mg PO DAILY #30 tab 11/01/20 Rx Cholecalciferol [Vitamin D3] 1,000 units PO DAILY #14 tab 11/01/20 Rx Pantoprazole [Protonix] 40 mg PO DAILY #30 tab 11/01/20 Rx Vitami E (Dl,Tocopheryl Acet) 400 units PO DAILY #14 cap 11/01/20 Rx [Vitamin E] Zinc Sulfate 220 mg PO DAILY #14 cap 11/01/20 Rx Apixaban [Eliquis] 10 mg PO BID 2 Days #3 tablet 11/04/20 Rx Dexamethasone [Decadron] 6 mg PO DAILY 4 Days #4 tab 11/04/20 Rx Hydrochlorothiazide 12.5 mg PO DAILY 30 Days #15 tab 11/04/20 Rx Simvastatin [Zocor] 20 mg PO HS 30 Days #30 tab 11/04/20 Rx Allergies: Iodinated Contrast Media Allergy (Unknown, Verified 10/29/20 02:10) Rash Penicillins Allergy (Verified 10/29/20 02:10) tramadol Allergy (Verified 10/29/20 02:10) Discharge Instructions:: Follow-up primary care physician within a week. Possible need for GI consult as an outpatient for fatty liver. Activity:: Activity as Tolerated Nourishment:: Heart Healthy Diet Therapies:: Not Applicable Equipment/Supplies:: Not Applicable IV Therapy:: Not Applicable Referrals: [facility] [Outside] Dieudonne Graff MD [Active] - Brittany Robledo MD [Primary Care Provider] - Disposition: HOME HEALTH Quality CORE MEASURES:: N/A
[2020-11-04 16:09] VITALS: BP 120/58; TEMP 98.7
--- NOTE | 2020-11-05 17:14 | EKG ---
Test Reason : Blood Pressure : / mmHG Vent. Rate : 086 BPM Atrial Rate : 086 BPM P-R Int : 158 ms QRS Dur : 076 ms QT Int : 364 ms P-R-T Axes : 038 -22 060 degrees QTc Int : 435 ms Normal sinus rhythm Normal ECG Confirmed by REJI ARGUELLES DO ([id number]), technical writer and editor MARCIO NEWSOME ([id number]) on 11/05/2020 5:14:14 PM Referred By: Confirmed By:REJI ARGUELLES DO
[2020-11-07 14:11] LABS: Hep B Surface AG-Rflx Sendout Negative (Negative); Hepatitis B Core Total Negative (Negative); Hepatitis B Surface AB-Sendout Non Reactive (.)
== END 2020-11-04 17:30 | disposition home health service (06) | DRG 177 ==
LOC: ERS 17:15 → 2SW 22:53 → OBSVTOIN 10-29 17:57
PROVIDERS: ADMIT Internal Medicine; ATTEND Internal Medicine
PROC: 8E0ZXY6 Isolation (ICD-10-PCS; principal; 2020-10-29)
DX: U07.1 COVID-19 (principal); J12.82 Pneumonia due to coronavirus disease 2019; I26.94 Multiple subsegmental thrombotic pulmonary emboli without acute cor pulmonale; D69.6 Thrombocytopenia, unspecified; E66.9 Obesity, unspecified; E78.5 Hyperlipidemia, unspecified; I10 Essential (primary) hypertension; E03.9 Hypothyroidism, unspecified; Z96.653 Presence of artificial knee joint, bilateral; E78.00 Pure hypercholesterolemia, unspecified; K76.0 Fatty (change of) liver, not elsewhere classified; Z90.710 Acquired absence of both cervix and uterus; Z85.038 Personal history of other malignant neoplasm of large intestine; Z86.718 Personal history of other venous thrombosis and embolism; Z88.0 Allergy status to penicillin; Z88.6 Allergy status to analgesic agent; Z91.041 Radiographic dye allergy status; Z68.36 Body mass index [BMI] 36.0-36.9, adult
CPT/HCPCS: 0240U; 36415; 71045; 71275; 80048; 80053; 80061; 82728; 83605; 83735; 83880; 84484; 85025; 85027; 85379; 86140; 86704; 86705; 86706; 86707; 86803; 87340; 87350; 93005; 93975; 96372; 96374; 96375; 96376; G0378; J1100; J1200; J1650; J2550; J2930; J8540; Q9967; S0028

== ENCOUNTER 2021-11-09 13:45 | Emergency (ER) | payer MEDICARE, OTHER ==
[2021-11-09] MEDS ORDERED: Acetaminophen 500 MG TAB ONE (14:57)
== END 2021-11-09 16:06 | disposition home or self-care (01) ==
LOC: ERS 13:45
DX: S09.90XA Unspecified injury of head, initial encounter (principal); Z86.718 Personal history of other venous thrombosis and embolism; I10 Essential (primary) hypertension; E03.9 Hypothyroidism, unspecified; E78.5 Hyperlipidemia, unspecified; W00.0XXA Fall on same level due to ice and snow, initial encounter
CPT/HCPCS: 70450; 72125

== ENCOUNTER 2025-04-24 13:12 | Inpatient (IN) | payer MEDICARE, OTHER ==
[2025-04-24] MEDS ORDERED: Iopamidol 370 76% 100 ML VIAL ONE (13:21)
[2025-04-24] MEDS ORDERED: diphenhydrAMINE 50 MG/ML VIAL ONE (13:35)
[2025-04-24] MEDS ORDERED: Famotidine/PF 20 mg/2ml Vial ONE (13:36)
[2025-04-24 13:54] LABS: #Basophils 0.04 10x3/uL (0.0-0.2); #Eosinophils 0.09 10x3/uL (0.0-0.7); #Monocytes 0.75 10x3/uL (0.11-0.59); #Neutrophils 9.05 10x3/uL (1.40-6.50); %Basophils 0.3 % (0.0-1.0); %Eosinophils 0.8 % (0.0-10.0); %Lymphocytes 13.7 % (21.0-51.0); %Monocytes 6.5 % (0.0-10.0); %Neutrophils 78.4 % (42.0-75.0); Hematocrit 42.0 % (36.0-47.0); Hemoglobin 13.6 g/dL (12.0-16.0); Mean Corpuscular Hemoglobin 29.0 pg (27.0-31.0); Mean Corpuscular Volume 89.6 fL (78.0-98.0); Platelet Count 235 10x3/uL (130-400); Red Blood Cell (RBC) Count 4.69 mill/uL (4.20-5.40); White Blood Cell (WBC) Count 11.54 10x3/uL (4.8-10.8)
[2025-04-24 14:09] LABS: INR-International Normal Ratio 1.1; Prothrombin Time 13.9 sec (12.0-14.7)
[2025-04-24 14:10] LABS: ALT (SGPT) 20 U/L (Less than 34); AST (SGOT) 28 U/L (11-34); Albumin 3.6 g/dL (3.1-4.5); Alkaline Phosphatase 94 U/L (40-110); Anion Gap 20 mmol/L (10-20); BUN (Urea Nitrogen) 17 mg/dL (9.8-20.1); Bilirubin, Total 0.6 mg/dL (0.3-1.2); Calc. Creatinine Clearance 0 mL/min (70-130); Calcium 9.1 mg/dL (7.8-10.44); Carbon Dioxide 26 mmol/L (23-31); Chloride 103 mmol/L (98-107); Globulin 3.4 g/dL (2.4-3.5); Glucose 125 mg/dL (83-110); Lipase 24 U/L (8-78); Magnesium 2.1 mg/dL (1.6-2.6); PTT 26.8 sec (22.9-36.1); Potassium 3.5 mmol/L (3.5-5.1); Sodium 145 mmol/L (136-145)
[2025-04-24 14:18] LABS: Troponin I 0.672 ng/mL (< 0.028)
[2025-04-24] MEDS ORDERED: Heparin 5,000 UNITS/ML VIAL ONE ×2 (15:52→15:56)
[2025-04-24] MEDS ORDERED: Acetaminophen 325 MG TAB PO PRN (17:52)
[2025-04-24] MEDS ORDERED: Ondansetron PF 4 MG/2 ML Vial IVP PRN (17:52)
[2025-04-24] MEDS ORDERED: Senokot S 8.6-50 MG TAB PO PRN (17:52)
[2025-04-24 17:55] VITALS: BMI 36.7
[2025-04-24 17:58] LABS: Troponin I 0.789 ng/mL (< 0.028)
[2025-04-24] MEDS ORDERED: Electrolyte Replacement Protocol 1 EACH FS SCH (18:00)
[2025-04-24] MEDS ORDERED: Heparin 10,000 UNITS/ 10 ML VIAL SLOW IVP SCH (18:15)
[2025-04-24] MEDS: Clindamycin 150 MG CAP PO SCH (18:47)
[2025-04-24] MEDS: Ipratropium Bromide 2.5 ml Neb NEB SCH (19:01)
[2025-04-24 21:22] LABS: INR-International Normal Ratio 1.1; Prothrombin Time 14.6 sec (12.0-14.7)
[2025-04-24 21:32] LABS: D-Dimer Test 7.84 mcg/mL (0.27-0.43)
[2025-04-24 21:35] LABS: Critical Call Chem Troponin I RESULT DECREASING; Troponin I 0.674 ng/mL (< 0.028)
[2025-04-24 21:39] LABS: PTT Greater than 250.0 sec (22.9-36.1)
[2025-04-24 21:40] LABS: PTT Greater than 250.0 sec (22.9-36.1)
[2025-04-25 04:23] LABS: #Basophils Less than 0.03 10x3/uL (0.0-0.2); #Eosinophils Less than 0.03 10x3/uL (0.0-0.7); #Monocytes 0.77 10x3/uL (0.11-0.59); #Neutrophils 10.70 10x3/uL (1.40-6.50); %Basophils 0.2 % (0.0-1.0); %Eosinophils 0.0 % (0.0-10.0); %Lymphocytes 7.8 % (21.0-51.0); %Monocytes 6.1 % (0.0-10.0); %Neutrophils 85.3 % (42.0-75.0); Hematocrit 37.6 % (36.0-47.0); Hemoglobin 12.0 g/dL (12.0-16.0); Mean Corpuscular Hemoglobin 28.6 pg (27.0-31.0); Mean Corpuscular Volume 89.5 fL (78.0-98.0); Platelet Count 204 10x3/uL (130-400); Red Blood Cell (RBC) Count 4.20 mill/uL (4.20-5.40); White Blood Cell (WBC) Count 12.54 10x3/uL (4.8-10.8)
[2025-04-25 05:02] LABS: Anion Gap 16 mmol/L (10-20); BUN (Urea Nitrogen) 21 mg/dL (9.8-20.1); Calc. Creatinine Clearance 52 mL/min (70-130); Calcium 8.6 mg/dL (7.8-10.44); Carbon Dioxide 23 mmol/L (23-31); Cardiac Risk 6.0 (Less than 4.5); Chloride 108 mmol/L (98-107); Cholesterol 191 mg/dl (< 200 Desired); Glucose 193 mg/dL (83-110); HDL Cholesterol 32 mg/dL (>60 Neg Risk); LDL Cholesterol, Calculated 131 mg/dL; Potassium 4.3 mmol/L (3.5-5.1); Sodium 143 mmol/L (136-145); Triglycerides 141 mg/dL (Less than 150)
[2025-04-25] MEDS: Pantoprazole 40 MG DR.TAB PO SCH (09:34)
[2025-04-25] MEDS: Valsartan 80 MG TAB PO SCH (09:35)
[2025-04-25] MEDS: Apixaban 5 MG TAB PO SCH ×2 (13:50→21:45)
[2025-04-25] MEDS: VANCOMYCIN 2 GRAM/400 ML Premix BAG IVPB SCH (18:12)
[2025-04-26 05:24] LABS: #Basophils 0.06 10x3/uL (0.0-0.2); #Eosinophils 0.33 10x3/uL (0.0-0.7); #Monocytes 0.81 10x3/uL (0.11-0.59); #Neutrophils 8.12 10x3/uL (1.40-6.50); %Basophils 0.5 % (0.0-1.0); %Eosinophils 2.9 % (0.0-10.0); %Lymphocytes 16.6 % (21.0-51.0); %Monocytes 7.2 % (0.0-10.0); %Neutrophils 72.4 % (42.0-75.0); Hematocrit 38.4 % (36.0-47.0); Hemoglobin 12.3 g/dL (12.0-16.0); Mean Corpuscular Hemoglobin 28.5 pg (27.0-31.0); Mean Corpuscular Volume 88.9 fL (78.0-98.0); Platelet Count 208 10x3/uL (130-400); Red Blood Cell (RBC) Count 4.32 mill/uL (4.20-5.40); White Blood Cell (WBC) Count 11.23 10x3/uL (4.8-10.8)
[2025-04-26 05:42] LABS: Vancomycin, Random 22.7 ug/mL (See Comment)
[2025-04-26 05:50] LABS: Anion Gap 13 mmol/L (10-20); BUN (Urea Nitrogen) 25 mg/dL (9.8-20.1); Calc. Creatinine Clearance 56 mL/min (70-130); Calcium 8.5 mg/dL (7.8-10.44); Carbon Dioxide 27 mmol/L (23-31); Chloride 105 mmol/L (98-107); Glucose 93 mg/dL (83-110); Potassium 4.2 mmol/L (3.5-5.1); Sodium 141 mmol/L (136-145)
[2025-04-26] MEDS: Vancomycin HCl 750 MG in Sodium Chloride 0.9% 250 ML 250 ML IVPB SCH (15:07)
[2025-04-27] MEDS: Calcium Carbonate 500 MG ChewTAB PO PRN (01:54)
[2025-04-27 09:00] LABS: Anion Gap 14 mmol/L (10-20); BUN (Urea Nitrogen) 22 mg/dL (9.8-20.1); Calc. Creatinine Clearance 63 mL/min (70-130); Calcium 9.3 mg/dL (7.8-10.44); Carbon Dioxide 26 mmol/L (23-31); Chloride 104 mmol/L (98-107); Glucose 137 mg/dL (83-110); Potassium 4.0 mmol/L (3.5-5.1); Sodium 140 mmol/L (136-145)
[2025-04-27] MEDS: Valsartan 80 MG TAB PO SCH (10:52)
[2025-04-27 12:00] VITALS: BP 200/97; TEMP 98.3
[2025-04-27 12:26] LABS: EliA APS New Method **** NEW METHOD ****
[2025-05-02] MEDS ORDERED: Apixaban 5 MG TAB PO SCH (09:00)
== END 2025-04-27 13:45 | disposition home or self-care (01) | DRG 175 ==
LOC: ERS 13:12 → 2NO 16:32
PROVIDERS: ADMIT Family Medicine; ATTEND Emergency Medicine
DX: I26.99 Other pulmonary embolism without acute cor pulmonale (principal); J96.01 Acute respiratory failure with hypoxia; N17.9 Acute kidney failure, unspecified; I10 Essential (primary) hypertension; E78.5 Hyperlipidemia, unspecified; E03.9 Hypothyroidism, unspecified; J06.9 Acute upper respiratory infection, unspecified; Z88.0 Allergy status to penicillin; Z91.040 Latex allergy status; Z88.8 Allergy status to other drugs, medicaments and biological substances; Z90.49 Acquired absence of other specified parts of digestive tract; Z90.710 Acquired absence of both cervix and uterus; Z79.899 Other long term (current) drug therapy
CPT/HCPCS: 36415; 71045; 71275; 80048; 80053; 80061; 80202; 83090; 83605; 83690; 83735; 83880; 84443; 84484; 85025; 85300; 85303; 85306; 85307; 85598; 85610; 85730; 86147; 87040; 87149; 93005; 93306; 93970; 94640; 96365; 96367; 96375; J1200; J1308; J1644; J2543; J2919; J3375; J7644; Q9967